=== PATIENT | female | born 1965 | race Caucasian/White ===

== ENCOUNTER 2019-03-28 18:58 | Emergency (ER) | payer MEDICAID ==
[~2019-03-28] VITALS: Ht 157.5 cm; Wt 69.9 kg
[~2019-03-28 18:58] MED LIST: KEP500 PO
[2019-03-28 19:05] VITALS: Ht 157.5 cm; Wt 69.9 kg
[2019-03-28 22:03] VITALS: BP 117/71
== END 2019-03-28 22:03 | disposition home or self-care (01) ==
LOC: ED 18:58
DX: G47.00 Insomnia, unspecified (principal)

== ENCOUNTER 2019-04-14 12:37 | Emergency (ER) | payer MEDICAID ==
[~2019-04-14] VITALS: Ht 162.6 cm; Wt 68.9 kg
[2019-04-14 13:12] VITALS: BP 113/75; Ht 162.6 cm; Wt 68.9 kg
[2019-04-14 14:09] LABS: BASOPHIL % 0.5 % (0-2); PLATELET COUNT 195 x10^3mcL (130-400); RED CELL DISTRIBUTION WIDTH 13.3 % (11.5-14.5)
[2019-04-14 14:33] LABS: CREATININE SERUM 0.7 mg/dL (0.6-1.0); GFR1 > 60 mL/min; GLUCOSE SERUM 119 mg/dL (74-106); POTASSIUM SERUM 4.2 mmol/L (3.5-5.1)
[2019-04-14 14:35] LABS: CALCIUM 8.7 mg/dL (8.5-10.1); CARBON DIOXIDE 28.6 mmol/L (21-32); CHLORIDE SERUM 107 mmol/L (98-107); SODIUM SERUM 142 mmol/L (136-145)
[2019-04-14 14:39] LABS: ALBUMIN 3.7 g/dL (3.4-5.0); ALKALINE PHOSPHATASE 83 U/L (46-116); ALT/SGPT 34 U/L (14-59); AST/SGOT 18 U/L (15-37); BILIRUBIN TOTAL 0.3 mg/dL (0.20-1.00); LIPASE 155 IU/L (73-393); TOTAL PROTEIN, SERUM 7.8 g/dL (6.4-8.2)
== END 2019-04-14 18:31 | disposition home or self-care (01) ==
LOC: ED 12:37 → EDBD 12:37 → ED 18:31
PROVIDERS: Emergency Medicine
DX: N39.0 Urinary tract infection, site not specified (principal); Z85.3 Personal history of malignant neoplasm of breast
CPT/HCPCS: 36415; Q0162